=== PATIENT | female | born 1980 | race American Indian/Alaskan Native ===

== ENCOUNTER 2017-08-17 21:43 | Emergency (ER) | payer BC ==
--- NOTE | 2017-08-17 23:55 | XRay Report ---
FINAL REPORT PROCEDURE: XR ANKLE 3+V RT TECHNIQUE: RIGHT ankle radiographs, AP, lateral, and oblique views. CPT 63697 HISTORY: swelling and pain from injuy COMPARISON: No prior studies are available for comparison. FINDINGS: Fracture (s) and/or Dislocation(s): None. Alignment: Normal. Joint space(s): There appears to be increased distance between the lateral malleolus and talus suspicious for talofibular ligament injury.. Soft tissues: Moderate degree soft tissue swelling is noted over the lateral malleolus.. Bone mineralization: Normal. Foreign bodies: None. Calcaneal spurring: None. IMPRESSION: No acute fracture. Possible injury lateral collateral ligament..
--- NOTE | 2017-08-18 00:40 | Emergency Department Report ---
ED Lower Extremity HPI - General Chief Complaint: Extremity Injury, Lower Stated Complaint: RIGHT ANKLE PAIN Time Seen by Provider: 08/18/17 00:22 Source: patient Mode of arrival: Ambulatory Limitations: No Limitations - History of Present Illness Initial Comments: This is a 36-year-old female, the patient is previously unknown to this provider , she reports that she is not , and denies chronic medical conditions. She presents to the ER with right lateral ankle pain after trip, an inversion injury. No other injuries, no other complaints. Has sharp achy pain on the lateral aspect of the right malleolus which does not radiate anywhere. Complaint: ankle injury, fall -: Sudden Injury: Ankle: Right Type of Injury: inversion Place: street/outdoors Severity: moderate Improves With: rest Worsens With: movement, palpation Context: walking Associated Symptoms: swelling, unable to bear weight. denies: numbness, tingling - Related Data Previous Rx's Medication Instructions Recorded Last Taken Type Acetaminophen [Tylenol Arthritis] 650 mg PO Q6HR PRN #30 tablet.er 08/18/17 Unknown Rx Ibuprofen [Motrin] 600 mg PO Q8H PRN #30 tablet 08/18/17 Unknown Rx Allergies Allergy/AdvReac Type Severity Reaction Status Date / Time No Known Allergies Allergy Unverified 08/17/17 22:58 ED Review of Systems ROS: Stated complaint: RIGHT ANKLE PAIN Other details as noted in HPI Comment: All other systems reviewed and negative ED Past Medical Hx - Past Medical History Previous Medical History?: No - Surgical History Additional Surgical History: Nexplenon implant - Social History Smoking Status: Never Smoker Substance Use Type: Alcohol - Medications Home Medications: Home Medications Medication Instructions Recorded Confirmed Last Taken Type Acetaminophen [Tylenol Arthritis] 650 mg PO Q6HR PRN #30 tablet.er 08/18/17 Unknown Rx Ibuprofen [Motrin] 600 mg PO Q8H PRN #30 tablet 08/18/17 Unknown Rx ED Physical Exam - General Limitations: No Limitations General appearance: alert, in no apparent distress - Head Head exam: Present: atraumatic, normocephalic - Eye Eye exam: Present: normal appearance, EOMI. Absent: nystagmus - ENT ENT exam: Present: normal exam, normal orophraynx, mucous membranes moist, normal external ear exam - Neck Neck exam: Present: normal inspection, full ROM - Respiratory Respiratory exam: Present: normal lung sounds bilaterally. Absent: respiratory distress - Cardiovascular Cardiovascular Exam: Present: regular rate, normal rhythm, normal heart sounds. Absent: systolic murmur, diastolic murmur, rubs, gallop - GI/Abdominal GI/Abdominal exam: Present: soft, normal bowel sounds. Absent: distended, tenderness, guarding, rebound, rigid, pulsatile mass - Extremities Exam Extremities exam: Present: normal inspection, full ROM, tenderness, normal capillary refill, other (right lateral malleolus tender and swollen. 2+ pulses noted in the bilateral upper and lower extremities. Sensation intact to light touch bilateral upper and lower extremities). Absent: pedal edema, joint swelling, calf tenderness - Back Exam Back exam: Present: normal inspection, full ROM. Absent: paraspinal tenderness , vertebral tenderness - Neurological Exam Neurological exam: Present: alert, oriented X3, CN II-XII intact, other ( Extraocular movements intact. Tongue midline. No facial droop. Facial sensation intact to light touch in the V1, V2, V3 distribution bilaterally. 5 and 5 strength in 4 extremities.. Sensation is intact to light touch in 4 extremities.). Absent: motor sensory deficit - Psychiatric Psychiatric exam: Present: normal affect, normal mood - Skin Skin exam: Present: warm, dry, intact, normal color. Absent: rash ED Course Vital Signs 08/18/17 00:44 Temperature 98 F Pulse Rate 90 Respiratory 16 Rate Blood Pressure 144/91 [Left] O2 Sat by Pulse 100 Oximetry ED Lower Extremity MDM - Lab Data Vital Signs 08/18/17 00:44 Temperature 98 F Pulse Rate 90 Respiratory 16 Rate Blood Pressure 144/91 [Left] O2 Sat by Pulse 100 Oximetry - Radiology Data Radiology results: report reviewed, image reviewed X-ray of the right ankle demonstrates no fracture or dislocation. Soft tissue swelling is noted. - Medical Decision Making Differential diagnosis, including but not limited to: Fracture, dislocation, sprain, strain Assessment and plan: 36-year-old female status post right ankle inversion injury with no fracture or dislocation on x-ray, soft tissue swelling is noted, Stubbs test is intact in the right lower extremity, compartments are soft, neurovascularly intact. Nonweightbearing, Aircast, crutches, pain medicine, patient will need to follow up with outpatient orthopedics. Critical care attestation.: If time is entered above; I have spent that time in minutes in the direct care of this critically ill patient, excluding procedure time. ED Disposition Clinical Impression: Right ankle sprain Disposition: [id number] TO HOME OR SELFCARE Is pt being admited?: No Does the pt Need Aspirin: No Condition: Good Instructions: Ankle Sprain (ED) Additional Instructions: Follow-up with an orthopedist within the next week. Keep the splint on the right lower extremity, use the crutches as directed, take the pain medication as directed. Pain typically gets worse before it gets better after blunt trauma. Rest, and avoid heavy lifting. Return to the ER right away with new pain, worsened pain, migration of pain, weakness, numbness, unsteady gait, confusion, projectile vomiting. Referrals: JOHNSON DUNCAN MD [Staff Physician] - 3-5 Days [facility] [Provider Group] - 3-5 Days Forms: Work/School Release Form(ED)
[2017-08-18 00:44] VITALS: BP 144/91
[2017-08-18] MEDS ORDERED: MOTRIN PO ONE (00:49)
[2017-08-18] MEDS ORDERED: TYLENOL PO ONE (00:49)
== END 2017-08-18 01:36 | disposition home or self-care (01) ==
LOC: ED 21:43
DX: S93.401A Sprain of unspecified ligament of right ankle, initial encounter (principal); W01.0XXA Fall on same level from slipping, tripping and stumbling without subsequent striking against object, initial encounter; Y93.01 Activity, walking, marching and hiking; Y99.8 Other external cause status; Y92.410 Unspecified street and highway as the place of occurrence of the external cause

== ENCOUNTER 2020-09-28 10:35 | Outpatient (CLI) | payer BC ==
--- NOTE | 2020-09-28 12:00 | Mammography Report ---
DIGITAL SCREENING MAMMOGRAM WITH CAD, 09/28/2020 CLINICAL INFORMATION / INDICATION: Routine screening mammography. SCREENING MAMMO TECHNIQUE: Digital bilateral 2D mammography was obtained in the craniocaudal and mediolateral obliqu e projections. This examination was interpreted with the benefit of Computer-Aided Detection analysis . COMPARISON: None FINDINGS: Breast Density: There are scattered areas of fibroglandular density. No dominant mass, suspicious calcifications, or architectural distortion in either breast. A few scattered nodular densities are present, one of which in the left breast measures 6 mm, posteri or depth, and located near the 6:00 position. There is also a nodular density in the right breast allyson suring 9 mm, and located near the 9:00 position. IMPRESSION: Bilateral breast nodules. Follow up recommendation: Ultrasound BI-RADS Category 0: Incomplete. Needs additional imaging evaluation and/or prior mammograms for aleida rison. A "normal" or negative report should not discourage follow up or biopsy of a clinically significant f inding. A written summary of these findings will be mailed to the patient. The patient will be entered into a mammography reporting system which will generate a reminder letter for the patient's next appointmen t at the appropriate interval. The [employer] recommends yearly mammograms starting at age 40 and continuing as l mitesh as a woman is in good health. Breast MRI is recommended for women with an approximate 20-25% or greater lifetime risk of breast cancer, including women with a strong family history of breast or ova mony cancer or who have been treated for Hodgkin's disease. Signer Name: Spencer Erickson MD Signed: 09/28/2020 11:56 AM Workstation Name: [id number]
== END 2020-09-28 10:36 | disposition home or self-care (01) ==
LOC: SPVWC 10:35
PROVIDERS: ATTEND Internal Medicine
DX: Z12.31 Encounter for screening mammogram for malignant neoplasm of breast (principal); N64.89 Other specified disorders of breast
CPT/HCPCS: 77067

== ENCOUNTER 2020-10-10 10:46 | Outpatient (CLI) | payer BC ==
--- NOTE | 2020-10-10 12:36 | Ultrasound Report ---
BILATERAL DIGITAL DIAGNOSTIC MAMMOGRAM WITH CAD CONVENTIONAL, 10/10/2020 BILATERAL LIMITED BREAST ULTRASOUND CLINICAL INFORMATION / INDICATION: Nodular densities noted bilaterally on recent baseline screening m ammogram. ABNORMAL MAMMO TECHNIQUE: Digital bilateral mammographic imaging was performed. Spot compression views were obtained . Limited ultrasound was performed. This examination was interpreted with the benefit of Computer-Aid ed Detection (CAD) analysis. COMPARISON: 09/28/2020 FINDINGS: Breast Density: There are scattered areas of fibroglandular density. MAMMOGRAPHIC FINDINGS: Nodular densities in the right breast improved with spot compression views. There is a persistent nodule in the left breast seen on spot compression views. It is smoothly margin ated and relatively low in density and may contain fat. This is not seen on ultrasound. ULTRASOUND FINDINGS: Targeted ultrasound evaluation was performed of the area of interest. . A 4 mm nodule is noted in the 10:00 position. This nodule is wider than tall and smoothly marginated and do es not shadow. There is no increased vascularity. This has benign sonographic characteristics. No sonographic abnormality is seen in the left breast to correspond to the nodule seen on mammogram. IMPRESSION: Right nodule seen on ultrasound and left nodule seen on mammogram have predominantly paula gn characteristics. These are probably benign. Follow up recommendation: Short term follow up in 6 months. With bilateral mammogram and right ultras ound. BI-RADS Category 3: Probably Benign. Followup in 6 months. A "normal" or negative report should not discourage follow up or biopsy of a clinically significant f inding. A written summary of these findings will be mailed to the patient. The patient will be entered into a mammography reporting system which will generate a reminder letter for the patient's next appointmen t at the appropriate interval. According to the [employer], yearly mammograms are recommended starting at age 40 and continuing as long as a woman is in good health. Breast MRI is recommended for women with an gabino roximately 20-25% or greater lifetime risk of breast cancer, including women with a strong family his tory of breast or ovarian cancer and women who have been treated for Hodgkin's disease. Signer Name: Asim Menezes MD Signed: 10/10/2020 12:31 PM Workstation Name: [id number]
== END 2020-10-10 10:47 | disposition home or self-care (01) ==
LOC: SPVWC 10:46
PROVIDERS: ATTEND Internal Medicine
DX: N63.11 Unspecified lump in the right breast, upper outer quadrant (principal); N63.20 Unspecified lump in the left breast, unspecified quadrant
CPT/HCPCS: 77066

== ENCOUNTER 2021-04-03 11:00 | Outpatient (CLI) | payer BC ==
--- NOTE | 2021-04-03 13:35 | Ultrasound Report ---
BILATERAL DIGITAL DIAGNOSTIC MAMMOGRAM WITH CAD CONVENTIONAL, 04/03/2021 RIGHT LIMITED BREAST ULTRASOUND CLINICAL INFORMATION / INDICATION: Six-month follow-up BILAT DIAG TECHNIQUE: Digital bilateral mammographic imaging was performed. Limited ultrasound was performed. Th is examination was interpreted with the benefit of Computer-Aided Detection (CAD) analysis. COMPARISON: 10/10/2020 FINDINGS: Breast Density: There are scattered areas of fibroglandular density. MAMMOGRAPHIC FINDINGS: No dominant mass, suspicious calcifications, or architectural distortion in th e right breast. Again demonstrated within the left posterior third of the breast within the slightly inner, upper quadrant is a small equal density mass which does not appear changed compared to previou s mammogram. ULTRASOUND FINDINGS: Targeted ultrasound evaluation was performed of the area of interest. Ultrasou nd imaging of the right breast at the 10:00 position, 4 cm from the nipple redemonstrates an oval, hy poechoic mass measuring approximately 0.3 x 0.4 x 0.2 cm, not significantly changed from previous ult rasound. IMPRESSION: No mammographic or sonographic evidence of malignancy. No significant change in right rubi ast hypoechoic mass and left breast equal density mass. Follow-up bilateral diagnostic mammogram and right breast ultrasound in 6 months is recommended. Follow up recommendation: Short term follow up in 6 months. BI-RADS Category 3: Probably Benign. Followup in 6 months. A "normal" or negative report should not discourage follow up or biopsy of a clinically significant f inding. A written summary of these findings will be mailed to the patient. The patient will be entered into a mammography reporting system which will generate a reminder letter for the patient's next appointmen t at the appropriate interval. According to the [employer], yearly mammograms are recommended starting at age 40 and continuing as long as a woman is in good health. Breast MRI is recommended for women with an gabino roximately 20-25% or greater lifetime risk of breast cancer, including women with a strong family his tory of breast or ovarian cancer and women who have been treated for Hodgkin's disease. Signer Name: Dion Lebron DO Signed: 04/03/2021 1:31 PM Workstation Name: [id number]
== END 2021-04-03 11:01 | disposition home or self-care (01) ==
LOC: SPVWC 11:00
PROVIDERS: ATTEND Internal Medicine
DX: R92.8 Other abnormal and inconclusive findings on diagnostic imaging of breast (principal)
CPT/HCPCS: 77066